=== PATIENT | female | born 1975 | race Caucasian/White ===

== ENCOUNTER 2019-04-18 19:09 | Emergency (ER) | payer OTHER, MEDICAID, SELFPAY ==
[2019-04-18 19:55] VITALS: BP 162/96; PULSE 88; RESP 15; TEMP 36.7; O2SAT 98; BMI 39.9
--- NOTE | 2019-04-18 20:09 | ED_ITS ---
HPI - URI/Sore Throat <Chelsey Kaplan PA-C - Last Filed: 04/18/19 21:06> General Chief Complaint: Upper Respiratory Symptoms Stated Complaint: EAR PAIN THROAT PAIN COUGH Time Seen by Provider: 04/18/19 20:03 Source: patient Mode of arrival: Ambulatory Limitations: no limitations History of Present Illness HPI Narrative: This 43-year-old female comes to ED secondary to onset of a 1st right-sided earache last Wednesday, then sinus and nasal pressure and congestion. She continues to have bilateral ear pressure and congestion, and yesterday woke up with a severe sore throat she thinks exacerbated by her sleep apnea. She states that she has minimal cough, not bringing up any phlegm, denies dyspnea or wheeze. She denies generalized body aches. She states she has had some chills and sweats at home, no temperature is taken. 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 Her son woke up with some similar symptoms a couple of days ago as well. She has had ear surgery in the past and thought she could have ear infection or strep throat, wanted to make sure she does not pass strep throat to the kids at school Related Data Previous Rx's Medication Instructions Recorded ibuprofen 800 mg tablet 800 mg PO TIDP PRN #60 tab 08/15/18 omeprazole 20 mg capsule,delayed 20 mg PO DAILY #30 cap 08/15/18 release bupropion HCl 300 mg 24 hr tablet, See Rx Instructions .ROUTE 04/13/19 extended release .COMPLEX #30 tablet Allergies Allergy/AdvReac Type Severity Reaction Status Date / Time No Known Drug Allergies Allergy Verified 04/18/19 20:03 Review of Systems <Chelsey Kaplan PA-C - Last Filed: 04/18/19 21:06> Review of Systems ROS Unobtainable: All systems reviewed & are unremarkable except as noted in HPI and below PFSH <Chelsey Kaplan PA-C - Last Filed: 04/18/19 21:06> Medical History Acne (Chronic 2013) Ankle pain (Resolved 1998) Cervical spine disease (Chronic 1998) Chickenpox (Resolved 1998) Depression (Chronic) Gastroparesis (Resolved 2009) GERD (gastroesophageal reflux disease) (Chronic 2009) GERD (gastroesophageal reflux disease) (Chronic) History of hemorrhoids (Resolved 2009) Knee pain, right (Resolved 11/2016) Left ankle pain (Chronic 05/19/16) Left-sided low back pain with sciatica (Chronic 04/2016) Plantar fasciitis (Resolved ~11/2016) Plantar fasciitis of left foot (Chronic 12/22/16) Sleep apnea (Chronic Unknown) Surgical History S/P hysterectomy (Chronic) Family History Father Essential hypertension Cerebrovascular accident (CVA), unspecified mechanism Mother Essential hypertension Social History marital status: lives independently: Yes occupational status: employed current occupational exposures/hazards: No Smoking Status: Never smoker alcohol intake: never substance use type: does not use Social History marital status: lives independently: Yes occupational status: employed current occupational exposures/hazards: No Smoking Status: Never smoker alcohol intake: never substance use type: does not use Exam <Chelsey Kaplan PA-C - Last Filed: 04/18/19 21:06> Narrative Exam Narrative: GENERAL APPEARANCE: Patient sitting comfortably, in no distress. HEAD: No sinus TTP. EYES: PERRL, EOMI. EARS: Normal auditory canals, there are scars on the tympanic membrane is which are intact, no erythema or drainage ORAL CAVITY: Normal oropharynx. THROAT: Mild erythema, no exudate, PND noted NECK/THYROID: Neck supple, full range of motion, shotty anterior cervical lymphadenopathy. LUNGS: Clear to auscultation bilaterally, rare dry cough on exam. HEART: RRR without murmur, nl S1, S2, no S3 or S4. DERMATOLOGIC: No exanthem Initial Vital Signs Initial Vital Signs: Vital Signs Temperature 98.1 F 04/18/19 19:55 Pulse Rate 88 04/18/19 19:55 Respiratory Rate 15 04/18/19 19:55 Blood Pressure 162/96 H 04/18/19 19:55 Pulse Oximetry 98 04/18/19 19:55 <Chepe Grimm MD - Last Filed: 04/19/19 08:30> Initial Vital Signs Initial Vital Signs: Vital Signs Temperature 98.1 F 04/18/19 19:55 Pulse Rate 88 04/18/19 19:55 Respiratory Rate 15 04/18/19 19:55 Blood Pressure 162/96 H 04/18/19 19:55 Pulse Oximetry 98 04/18/19 19:55 Course <Chelsey Kaplan PA-C - Last Filed: 04/18/19 21:06> Vital Signs Vital signs: Vital Signs - 8 hr 04/18/19 19:55 Temperature 98.1 F Pulse Rate 88 Respiratory Rate 15 Blood Pressure 162/96 H Pulse Oximetry 98 <Chepe Grimm MD - Last Filed: 04/19/19 08:30> Vital Signs Vital signs: Vital Signs - 8 hr 04/18/19 19:55 Temperature 98.1 F Pulse Rate 88 Respiratory Rate 15 Blood Pressure 162/96 H Pulse Oximetry 98 MDM - URI/Sore Throat <Chelsey Kaplan PA-C - Last Filed: 04/18/19 21:06> Lab Data Attestation: I reviewed the patient's lab results. Labs: Point of Care Testing Rapid Strep A Negative <Chepe Grimm MD - Last Filed: 04/19/19 08:30> Lab Data Labs: Point of Care Testing Rapid Strep A Negative Discharge Plan Departure Patient Disposition: Home Clinical Impression: Sinusitis Qualifiers: Sinusitis location: unspecified location Chronicity: acute Recurrence: not specified as recurrent Qualified Code(s): J01.90 - Acute sinusitis, unspecified Discharge Date/Time: 04/18/19 20:47 Instructions: DI for Sinusitis Activity Restrictions/Additional Instructions: Please rest, continue fluids and eat soft foods that will not irritate your throat. You can try an antihistamine bgej-xoh-atlszkn such as Zyrtec (cetirizine, 10 mg) to help with your sinus drainage. Since you prefer not to take decongestants, you may wish to add something like Mentholatum or Vicks to help with congestion. Try spdl-sep-xbmntat Cepacol lozenges and/or Chloraseptic spray as needed to help with sore throat. Try an ecxs-eyy-cvjxlmg anti- inflammatory such as ibuprofen to help with sore throat and any fever as well. Please follow-up with your PCP if you are not getting better by next week, return as we talked about if you have acutely worsening or new symptoms such as difficulty breathing or high fever not responding to jwfz-jmn-rpkylbe medicines. Remain off of work if you are feeling more sick or have cough to help avoid infecting others Prescriptions: No Action ibuprofen 800 mg tablet 800 mg PO TIDP PRN (Reason: pain) Qty: 60 RF: 3 omeprazole 20 mg capsule,delayed release(DR/EC) 20 mg PO DAILY Qty: 30 RF: 11 bupropion HCl 300 mg tablet extended release 24 hr See Rx Instructions .ROUTE .COMPLEX Qty: 30 RF: 3 Referrals: Cata Dooley DO [Primary Care Provider] - Hermila Wong PA-C [Non-Staff] - Stand Alone Forms: Work Release Note, Work/School Release
== END 2019-04-18 20:47 | disposition home or self-care (01) ==
PROVIDERS: Emergency Provider Internal Medicine; PCP Family Medicine
DX: J01.90 Acute sinusitis, unspecified (principal)
CPT/HCPCS: 87880; 99282; 99283

== ENCOUNTER 2019-12-08 14:52 | Observation (INO) | payer OTHER, MEDICAID, SELFPAY ==
[2019-12-08] VITALS (8 sets, daily range): BP systolic 138–185; BP diastolic 70–101; PULSE 101–112; RESP 12–24; TEMP 37.3–38.6; O2SAT 97–98; BMI 39.6
[2019-12-08 16:00] LABS: Add Manual Diff / Slide Review NO; Basophils Absolute Auto 100 /uL (0-100); Basophils Percent Auto 0.4 % (0-2); Eosinophils Absolute Auto 100 /uL (0-450); Eosinophils Percent Auto 0.5 % (2-4); Hematocrit 38.2 % (36-46); Hemoglobin 13.3 g/dL (12.0-16.0); Lymphocytes Absolute Auto 1100 /uL (1100-4500); Lymphocytes Percent Auto 8.1 % (25-40); Mean Corpuscular HGB Conc 34.8 % (30-36); Mean Corpuscular Hemoglobin 28.8 PG (26-34); Mean Corpuscular Volume 82.8 fL (80-100); Monocytes Absolute Auto 600 /uL (0-900); Monocytes Percent Auto 4.6 % (3-14); Neutrophils Absolute Auto 11300 /uL (1500-7000); Neutrophils Percent Auto 86.4 % (50-75); Platelet Count 202 X10^3/uL (150-400); Red Blood Cell Count 4.61 X10^6/uL (4.0-5.2); White Blood Cell Count 13.1 X10^3/uL (4.5-11.0)
--- NOTE | 2019-12-08 16:09 | ED.SKABFB ---
HPI - Skin/Abscess/Foreign Bdy General Chief complaint: Skin/Abscess/Foreign Body Stated complaint: thinks abcess on or bite on her butt Time Seen by Provider: 12/08/19 16:08 Source: patient Mode of arrival: Ambulatory Limitations: no limitations History of Present Illness HPI narrative: This is a 44-year-old female comes to the emergency department with complaint of a abscess or some sort of spider bite on her right buttock region. Patient states that she noticed swelling and pain over the last 24-48 hours. She started having fevers last night. She has had increasing pain and swelling and has been unable to sit comfortably on her buttock for the last 12-24 hours. She has not really had any drainage. She states the area feels very hard. She has had some nausea but no vomiting she has not had any abdominal pain. No issues with bowel movements or urination. She has not had issues with skin infections in the past. She states she takes omeprazole but denies any other current medical issues. She has had tonsillectomy and appendectomy. She denies any allergies to medications. No tobacco, alcohol or illicit. Related Data Home Medications Medication Instructions Recorded Confirmed ibuprofen 800 mg PO PRN PRN 12/08/19 12/08/19 Previous Rx's Medication Instructions Recorded omeprazole 20 mg capsule,delayed 20 mg PO DAILY #90 cap 08/13/19 release Allergies Allergy/AdvReac Type Severity Reaction Status Date / Time No Known Drug Allergies Allergy Verified 04/18/19 20:03 Review of Systems Review of Systems ROS Unobtainable: All systems reviewed & are unremarkable except as noted in HPI and below Patient History Medical History Acne (Chronic 2013) Ankle pain (Resolved 1998) Cervical spine disease (Chronic 1998) Chickenpox (Resolved 1998) Depression (Chronic) Gastroparesis (Resolved 2009) GERD (gastroesophageal reflux disease) (Chronic 2009) History of hemorrhoids (Resolved 2009) Knee pain, right (Resolved 11/2016) Left-sided low back pain with sciatica (Chronic 04/2016) Plantar fasciitis of left foot (Chronic 12/22/16) Sleep apnea (Chronic Unknown) Surgical History History of tonsillectomy (Acute) History of tubal ligation (Acute) Hx of appendectomy (Acute) S/P hysterectomy (Chronic) Family History Father Essential hypertension Cerebrovascular accident (CVA), unspecified mechanism Mother Essential hypertension Myocardial infarction Brother No significant medical problems Son Autism Social History marital status: household members: children lives independently: Yes occupational status: employed current occupational exposures/hazards: No Smoking Status: Never smoker alcohol intake: never substance use type: does not use Smoking Status: Never smoker alcohol intake frequency: holidays/special occasions only Substance Use Type: does not use Exam Narrative Exam Narrative: GENERAL: Alert and oriented x three, obese female in moderate distress. Patient is warm to the touch. HEENT: Head normocephalic, atraumatic, EOMI, pupils reactive, face symmetric, moist mucous membranes NECK: Supple, full range of motion CARDIOVASCULAR: Patient is tachycardic with regular rate and rhythm without murmurs, rubs or gallops. No JVD. RESPIRATORY: Breath sounds equal bilaterally, no wheezes rales or rhonchi. No tachypnea accessory muscle use. ABDOMEN: Soft, nontender. Normoactive bowel sounds all 4 quadrants. No guarding or rebound, rigidity, no mass. Patient's right buttock near the gluteal crease/ischial region and groin there is about a 6-8 cm irregular area of erythema as well as induration that extends towards the perineum but does not fully involve the perineum. There does not appear to be an area that is actively draining or fluctuant. Patient is very tender to touch. : No CVA tenderness EXTREMITIES: Normal range of motion, no clubbing or edema. Neurovascularly intact NEUROLOGICAL: Cranial nerves II through XII grossly intact. Moving all extremities SKIN: Warm, dry, no petechiae, no rashes or lesions other than noted above. Initial Vital Signs Initial Vital Signs: Vital Signs Temperature 101.4 F H 12/08/19 15:06 Pulse Rate 112 H 12/08/19 15:06 Respiratory Rate 22 12/08/19 15:06 Blood Pressure 185/95 H 12/08/19 15:06 Pulse Oximetry 98 12/08/19 15:06 Course Orders Ordered: Acetaminophen (Tylenol) 975 mg PO Q8H [facility] Last Admin: 12/09/19 05:04 Dose: Not Given Documented by: Admin: 12/08/19 20:51 Dose: 975 mg Documented by: MICHAEL Castillo Hydrox/Mg Hydrox/Simethicone (Maalox Plus) 30 ml PO Q6HR PRN PRN Reason: Dyspepsia Bisacodyl (Dulcolax) 10 mg MO DAILY PRN PRN Reason: Constipation Calcium Carbonate (Tums) 1,000 mg PO Q4HR PRN PRN Reason: Dyspepsia Docusate Sodium (Colace) 100 mg PO BID PRN PRN Reason: Constipation Heparin Sodium (Porcine) (Heparin) 5,000 unit SUBCUT BID [facility] Last Admin: 12/08/19 20:54 Dose: 5,000 unit Documented by: MICHAEL Ampicillin Sodium/Sulbactam (Sodium 3 gm/ Sodium Chloride) 100 mls @ 100 mls/hr IV Q6H [facility] Last Infusion: 12/09/19 06:30 Dose: 0 mls/hr Documented by: Admin: 12/09/19 05:26 Dose: 100 mls/hr Documented by: Infusion: 12/09/19 00:45 Dose: 0 mls/hr Documented by: Admin: 12/08/19 23:42 Dose: 100 mls/hr Documented by: GEGE Ibuprofen (Advil) 600 mg PO Q6HR PRN PRN Reason: Fever/Mild Pain (1-3) Last Admin: 12/09/19 05:26 Dose: 600 mg Documented by: GEGE Naloxone HCl (Narcan) 0.2 mg IV Q2MIN PRN PRN Reason: Opiate Reversal Ondansetron HCl (Zofran) 4 mg IV Q8HR PRN PRN Reason: Nausea And Vomiting Pantoprazole Sodium (Protonix) 20 mg PO 0600 [facility] Last Admin: 12/09/19 05:27 Dose: 20 mg Documented by: GEGE Discontinued Medications Sodium Chloride (Normal Saline 0.9%) 1,000 mls @ 1,000 mls/hr IV BOLUS ONE Stop: 12/08/19 16:25 Last Infusion: 12/08/19 18:23 Dose: 0 mls/hr Documented by: Admin: 12/08/19 16:26 Dose: 1,000 mls/hr Documented by: NISA Lactated Ringer's (Lactated Ringers) 3,347.52 mls @ 1,115.84 mls/hr 30 ml/kg infuse over 3 hr (3347.52 ml) IV NOW ONE Stop: 12/08/19 19:23 Last Infusion: 12/08/19 19:53 Dose: 0 mls/hr Documented by: Infusion: 12/08/19 18:23 Dose: 1,115.84 mls/hr Documented by: Admin: 12/08/19 16:52 Dose: 1,115.84 mls/hr Documented by: LEMUEL Ampicillin Sodium/Sulbactam (Sodium 3 gm/ Sodium Chloride) 100 mls @ 100 mls/hr IV NOW ONE Stop: 12/08/19 16:25 Last Infusion: 12/08/19 18:23 Dose: 0 mls/hr Documented by: Admin: 12/08/19 16:51 Dose: 100 mls/hr Documented by: LEMUEL Ketorolac Tromethamine (Toradol) 30 mg IV NOW ONE Stop: 12/08/19 16:25 Last Admin: 12/08/19 16:51 Dose: 30 mg Documented by: LEMUEL Vital Signs Vital signs: Vital Signs - 8 hr 12/08/19 15:06 12/08/19 16:29 Temperature 101.4 F H Pulse Rate 112 H 110 H Respiratory Rate 22 24 Blood Pressure 185/95 H Blood Pressure [Right Arm] 168/85 H Pulse Oximetry 98 97 MDM - Skin/Abscess/Foreign Bdy Lab Data Attestation: I reviewed the patient's lab results. Result diagrams: 12/09/19 05:09 12/09/19 05:09 Labs: Lab Results 12/08/19 12/08/19 12/08/19 Range/Units 15:56 15:56 15:56 WBC 13.1 H (4.5-11.0) X10^3/uL RBC 4.61 (4.0-5.2) X10^6/uL Hgb 13.3 (12.0-16.0) g/dL Hct 38.2 (36-46) % MCV 82.8 (80-100) fL MCH 28.8 (26-34) PG MCHC 34.8 (30-36) % RDW 13.0 (11.6-14.8) % Plt Count 202 (150-400) X10^3/uL Neut % (Auto) 86.4 H (50-75) % Lymph % (Auto) 8.1 L (25-40) % Forest % (Auto) 4.6 (3-14) % Eos % (Auto) 0.5 L (2-4) % Baso % (Auto) 0.4 (0-2) % Neut # (Auto) 10062 H (9722-3398) /uL Lymph # (Auto) 1100 (2987-0003) /uL Forest # (Auto) 600 (0-900) /uL Eos # (Auto) 100 (0-450) /uL Baso # (Auto) 100 (0-100) /uL PT 12.3 (10.1-12.7) SECONDS INR 1.1 (0.9-1.3) APTT 30 (26.4-36.2) SECONDS Sodium (137-145) mmol/L Potassium (3.4-5.1) mmol/L Chloride (98-107) mmol/L Carbon Dioxide (22-32) mmol/L BUN (7-17) mg/dL Creatinine (0.52-1.04) mg/dL Estimated GFR (>60) mL/min BUN/Creatinine Ratio (6-22) Glucose (70-100) mg/dL Lactate (0.7-2.1) mmol/L Calcium (8.4-10.2) mg/dL Total Bilirubin (0.2-1.3) mg/dL AST (14-36) IU/L ALT (<35) IU/L Alkaline Phosphatase (38-126) U/L Total Protein (6.3-8.2) g/dL Albumin (3.5-5.0) g/dL Globulin (1.7-4.1) g/dL Albumin/Globulin Ratio (1.0-2.8) Lipase (23-300) U/L Procalcitonin < 0.05 (<0.5) ng/mL 12/08/19 12/08/19 Range/Units 15:56 15:56 WBC (4.5-11.0) X10^3/uL RBC (4.0-5.2) X10^6/uL Hgb (12.0-16.0) g/dL Hct (36-46) % MCV (80-100) fL MCH (26-34) PG MCHC (30-36) % RDW (11.6-14.8) % Plt Count (150-400) X10^3/uL Neut % (Auto) (50-75) % Lymph % (Auto) (25-40) % Forest % (Auto) (3-14) % Eos % (Auto) (2-4) % Baso % (Auto) (0-2) % Neut # (Auto) (7150-8289) /uL Lymph # (Auto) (1212-3588) /uL Forest # (Auto) (0-900) /uL Eos # (Auto) (0-450) /uL Baso # (Auto) (0-100) /uL PT (10.1-12.7) SECONDS INR (0.9-1.3) APTT (26.4-36.2) SECONDS Sodium 138 (137-145) mmol/L Potassium 3.7 (3.4-5.1) mmol/L Chloride 103 (98-107) mmol/L Carbon Dioxide 23 (22-32) mmol/L BUN 11 (7-17) mg/dL Creatinine 0.81 (0.52-1.04) mg/dL Estimated GFR > 60.0 (>60) mL/min BUN/Creatinine Ratio 13.6 (6-22) Glucose 102 H (70-100) mg/dL Lactate 0.6 L (0.7-2.1) mmol/L Calcium 9.1 (8.4-10.2) mg/dL Total Bilirubin 1.0 (0.2-1.3) mg/dL AST 31 (14-36) IU/L ALT 27 (<35) IU/L Alkaline Phosphatase 61 (38-126) U/L Total Protein 7.6 (6.3-8.2) g/dL Albumin 4.5 (3.5-5.0) g/dL Globulin 3.1 (1.7-4.1) g/dL Albumin/Globulin Ratio 1.5 (1.0-2.8) Lipase 45 (23-300) U/L Procalcitonin (<0.5) ng/mL Imaging Data CT scan - abdomen/pelvis: Radiologist's Impression: [address] [address] [address] Scan Report Signed Patient: Aria Howard KMR#: [id number] : 1975Acct:[id number] Age/Sex: 44 / FDate of Service: 12/08/19 Loc: ED Accession Number: [id number] Procedure: CT abdomen pelvis w con Ordering Provider: Светлана Barreto D.O. PROCEDURE: CT ABDOMEN PELVIS W CON INDICATIONS: cellulitis/abscess of right buttock/groin, sepsis TECHNIQUE: After the administration of intravenous contrast, 5 mm thick sections acquired from the diaphragm to the symphysis. 5 mm coronal and sagittal reformats were acquired. For radiation dose reduction, the following was used: automated exposure control, adjustment of mA and/or kV according to patient size. COMPARISON: None. FINDINGS: Image quality: Excellent. ABDOMEN: Lung bases: Lung bases are clear. Heart size is normal. Solid organs: Evaluation of the liver demonstrates no focal hepatic lesions. The gallbladder appears within normal limits without calcified gallstones. Biliary system is non-dilated. Pancreas enhances normally. No peripancreatic fat stranding or fluid collections. No pancreatic duct dilatation. The spleen is normal in size. There is a small cyst within the inferior spleen measuring up to 1.3 cm. No adrenal nodules. Kidneys demonstrate no hydronephrosis. Peritoneum and bowel: Bowel loops demonstrate normal wall thickness and caliber. No free fluid or air. Nodes and vessels: No retroperitoneal or mesenteric adenopathy by size criteria. Aorta and inferior vena cava are normal in size. Miscellaneous: No ventral hernias. PELVIS: Genitourinary: The urinary bladder is partially distended. There are 2 right adnexal cysts measuring up to 4.0 cm and 2.9 cm. Miscellaneous: There is subcutaneous fat stranding in the right gluteal soft tissues without a discrete fluid collection to suggest an abscess. No definite ulcers or sinus tracts. No inguinal hernias or adenopathy. Bones: No suspicious bony lesions. No vertebral body compression fractures. IMPRESSION: 1. Right gluteal subcutaneous edema compatible with cellulitis given clinical history. No discrete abscess collection, ulcer, or sinus tract identified. 2. 2 right adnexal cysts are nonspecific and may represent physiologic cysts. Further evaluation may be obtained with ultrasound in 6 weeks to demonstrate resolution if clinically indicated. Dictated by: Keegan Mcgregor M.D. on 12/08/2019 at 17:10 Approved by: Keegan Mcgregor M.D. on 12/08/2019 at 17:15 ECG Data Attestation: I personally reviewed and interpreted this ECG as follows: Interpretation: Sinus tachycardia rate of 116 MO 135 QRS of [address] elevation or depression. MDM Narrative Medical decision making narrative: Patient meets septic criteria with fever and tachycardia, she does have an elevated wbc at 13.1, left shift with normal hemoglobin. CMP shows a glucose of 102 is not elevated lactate at 0.6. Renal function electrolytes are normal along with LFTs. Procalcitonin is not elevated. CT it abdomen/pelvis was ordered as patient has a very large area of induration and erythema and likely has an abscess although I am not able to palpate a clear area that I can drain, because of her sepsis and body habitus feel CT would be more appropriate at this time. Patient received fluids, Toradol initial dose of IV antibiotics. CT shows area of subcutaneous edema and fat stranding without a discrete fluid collection to suggest an abscess. Area is large and this was discussed with General surgery with Dr. Blair, she will look at images but if there is only cellulitic changes and edema at this time she would ask that inpatient medicine contact her a official consult if patient develops abscess after repeat imaging. Discussed with Dr. Bonilla, she accepts for observation. Started on Unasyn, 30cc/kg bolus IV fluids and Toradol, and Dr. Bonilla is aware of Dr. Greene's request. Discharge Plan Departure Patient Disposition: Admitted as Observation Clinical Impression: Cellulitis, gluteal, right Sepsis Qualifiers: Sepsis type: sepsis due to unspecified organism Sepsis acute organ dysfunction status: without acute organ dysfunction Qualified Code(s): A41.9 - Sepsis, unspecified organism Discharge Date/Time: 12/08/19 18:28 Referrals: Cata Dooley DO [Primary Care Provider] - Admit Date/Time: 12/08/19 17:56 Admit Provider: Dayana Bonilla
[2019-12-08 16:10] LABS: INR 1.1 (0.9-1.3); Prothrombin Time 12.3 SECONDS (10.1-12.7)
[2019-12-08 16:13] LABS: Lactate (Lactic Acid) 0.6 mmol/L (0.7-2.1); PTT Partial Thromboplastin Tim 30 SECONDS (26.4-36.2)
[2019-12-08 16:14] LABS: Alanine Aminotransferase 27 IU/L (<35); Albumin 4.5 g/dL (3.5-5.0); Albumin Globulin Ratio 1.5 (1.0-2.8); Alkaline Phosphatase 61 U/L (38-126); Aspartate Aminotransferase 31 IU/L (14-36); BUN Creatinine Ratio 13.6 (6-22); Blood Urea Nitrogen 11 mg/dL (7-17); Calcium 9.1 mg/dL (8.4-10.2); Carbon Dioxide 23 mmol/L (22-32); Chloride 103 mmol/L (98-107); Estimated Glomerular Filt Rate > 60.0 mL/min (>60); Globulin 3.1 g/dL (1.7-4.1); Glucose 102 mg/dL (70-100); HEMOLYSIS < 15 (0-50); Lipase 45 U/L (23-300); Potassium 3.7 mmol/L (3.4-5.1); Sodium 138 mmol/L (137-145); Total Protein 7.6 g/dL (6.3-8.2)
[2019-12-08] MEDS: SODIUM CHLORIDE 0.9% 1,000 ML 1000 ML IV (16:26)
--- NOTE | 2019-12-08 16:28 | DI.CT.S_ITS ---
PROCEDURE: CT ABDOMEN PELVIS W CON INDICATIONS: cellulitis/abscess of right buttock/groin, sepsis TECHNIQUE: After the administration of intravenous contrast, 5 mm thick sections acquired from the diaphragm to the symphysis. 5 mm coronal and sagittal reformats were acquired. For radiation dose reduction, the following was used: automated exposure control, adjustment of mA and/or kV according to patient size. COMPARISON: None. FINDINGS: Image quality: Excellent. ABDOMEN: Lung bases: Lung bases are clear. Heart size is normal. Solid organs: Evaluation of the liver demonstrates no focal hepatic lesions. The gallbladder appears within normal limits without calcified gallstones. Biliary system is non-dilated. Pancreas enhances normally. No peripancreatic fat stranding or fluid collections. No pancreatic duct dilatation. The spleen is normal in size. There is a small cyst within the inferior spleen measuring up to 1.3 cm. No adrenal nodules. Kidneys demonstrate no hydronephrosis. Peritoneum and bowel: Bowel loops demonstrate normal wall thickness and caliber. No free fluid or air. Nodes and vessels: No retroperitoneal or mesenteric adenopathy by size criteria. Aorta and inferior vena cava are normal in size. Miscellaneous: No ventral hernias. PELVIS: Genitourinary: The urinary bladder is partially distended. There are 2 right adnexal cysts measuring up to 4.0 cm and 2.9 cm. Miscellaneous: There is subcutaneous fat stranding in the right gluteal soft tissues without a discrete fluid collection to suggest an abscess. No definite ulcers or sinus tracts. No inguinal hernias or adenopathy. Bones: No suspicious bony lesions. No vertebral body compression fractures. IMPRESSION: 1. Right gluteal subcutaneous edema compatible with cellulitis given clinical history. No discrete abscess collection, ulcer, or sinus tract identified. 2. 2 right adnexal cysts are nonspecific and may represent physiologic cysts. Further evaluation may be obtained with ultrasound in 6 weeks to demonstrate resolution if clinically indicated. Dictated by: Keegan Mcgregor M.D. on 12/08/2019 at 17:10 Approved by: Keegan Mcgregor M.D. on 12/08/2019 at 17:15
[2019-12-08] MEDS: AMPICILLIN/SULBACTAM 3 GM 3 GM in SODIUM CHLORIDE 0.9% 100 ML IV ×2 (16:51→23:42)
[2019-12-08] MEDS: KETOROLAC 60 MG/2 ML VIAL 30 MG IV (16:51)
[2019-12-08] MEDS: LACTATED RINGERS 1115.84 ML IV (16:52)
[2019-12-08 16:54] LABS: Procalcitonin < 0.05 ng/mL (<0.5)
[2019-12-08 18:30] LABS: Appearance Urine UA CLEAR; Bacteria Urine None Seen; Bilirubin Urine UA NEGATIVE (NEGATIVE); Color Urine UA YELLOW; Glucose Urine UA NEGATIVE (Negative); Ketones Urine UA TRACE (NEGATIVE); Leukocyte Esterase Urine UA NEGATIVE (NEGATIVE); Nitrite Urine UA NEGATIVE (Negative); Occult Blood Urine UA NEGATIVE (Negative); Protein Urine UA NEGATIVE (Negative); RBC Urine None Seen (0-5/HPF); Specific Gravity Urine UA <=1.005 (1.000-1.035); Urobilinogen Urine UA 0.2 E.U./dL (0.2); WBC Urine None Seen (0-5/HPF)
[2019-12-08 18:37] LABS: Culture Indicated Urine Cult Not Indicated; Urine Comments Microscopic Normal; pH Urine UA 7.5 (4.5-8.0)
--- NOTE | 2019-12-08 19:14 | PC.NURSE ---
Pt arrived on unit from ER at approx 1830 via stretcher. Pt rates R buttock 5/10 pain, and states that she is tired from working all day and that she is hungry, she has not eaten all day. Her current temp is 99.2. She has + BT, LS are clear, HR is S1, S2. She is A and O x 4.
--- NOTE | 2019-12-08 20:28 | P.HP_ITS ---
History of Present Illness History of Present Illness Date Patient Seen: 12/08/19 Time Patient Seen: 19:47 Chief complaint: thinks abcess on or bite on her butt Narrative: Ms. Aria Howard is a 44-year-old female with a history significant for cervical and lumbar spine pain, sciatic, depression and GERD who presents to the ER with a right buttock abscess. The patient states that she began having pain 1-2 days ago and did manipulate the abscess attempting to drain it without success. She has had associated symptoms fevers onset last night with shaking chills, nausea without vomiting, progressive pain and swelling. 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 She has taken Tylenol for fevers and discomfort. She also describes symptoms including headache and some dizziness but no nasal congestion or sore throat. She has had no chest pain or palpitations, shortness of breath cough or wheezing. She describes some upper abdominal discomfort she describes musculoskeletal. She has had no change in bowel habits and denies urinary symptoms including urgency frequency or burning. The patient has chronic cervical and lumbar spine pain with knee pain and states that she has 50% disabled from the . She is otherwise independent in all ADLs. Upon arrival to the ER the patient has a temperature 101.4?, tachycardic at 112, blood pressure 185/95, respiratory rate of 22 saturating 98% on room air. CT imaging is obtained which finds the subcutaneous fat stranding of the right gl uteus without fluid collection or identified ulcer or sinus tract, incidental finding of splenic cyst 1.3 cm and 2 right adnexal cyst measuring 4 cm and 2.9 cm. On laboratory analysis she has elevated white count at 13.1, hemoglobin of 13.3 and hematocrit of 38.2 with platelets of 202. She has a PT of 12.3, INR 1.1 and a PTT of 30. Electrolytes within normal limits she has a BUN 11 and creatinine 0.81. Her nonfasting glucose is 102. On liver functions and transaminase are within normal limits. She has lactic acid of 0.6 and a procalcitonin is negative at less than 0.05. Urinalysis has trace ketones and is negative for infection. In the ER the patient is receiving sepsis bolus of lactated Ringer's and ampicillin/sulbactam 3 g IV. The patient is admitted to the medicine service for right buttock cellulitis. Patient History Medical History Acne (Chronic 2013) Ankle pain (Resolved 1998) Cervical spine disease (Chronic 1998) Chickenpox (Resolved 1998) Depression (Chronic) Gastroparesis (Resolved 2009) GERD (gastroesophageal reflux disease) (Chronic 2009) History of hemorrhoids (Resolved 2009) Knee pain, right (Resolved 11/2016) Left-sided low back pain with sciatica (Chronic 04/2016) Plantar fasciitis of left foot (Chronic 12/22/16) Sleep apnea (Chronic Unknown) Surgical History History of tonsillectomy (Acute) History of tubal ligation (Acute) Hx of appendectomy (Acute) S/P hysterectomy (Chronic) Family & Social History Family History Father Essential hypertension Cerebrovascular accident (CVA), unspecified mechanism Mother Essential hypertension Myocardial infarction Brother No significant medical problems Son Autism Social History: household members children Prior Living Arrangements House lives independently Yes Safety & Behavioral: Feels Safe in Current Yes Environment Been Physically Hurt or No Threatened By a Person Suicidal Ideation Description None Suicide Plan Description No Plan Tobacco & Substance use: Smoking Status Never smoker alcohol intake never alcohol intake frequency holiday/special occasion Substance Use Type does not use Comment: The patient is and lives with her children in a single family home. 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 Alcohol: Occasional alcohol consumption on special occasions. Substance use: Patient denies recreation pharmaceuticals herbal or cannabis products. Advanced directives: Inject discussion with the patient she states her wish to be FULL CODE. She further states that she does not wish to have long-term life support measures. She designates her mother to be her surrogate decision maker. Meds Home Medications and Allergies Home Medications Medication Instructions Recorded Confirmed Type omeprazole 20 mg capsule,delayed 20 mg PO DAILY #90 cap 08/13/19 12/08/19 Rx release ibuprofen 800 mg PO PRN PRN 12/08/19 12/08/19 History Allergies Allergy/AdvReac Type Severity Reaction Status Date / Time No Known Drug Allergies Allergy Verified 04/18/19 20:03 Review of Systems Review of Systems ROS: Yes All systems reviewed with the patient and are negative except as otherwise documented Exam Vital Signs (past 8 hours): - 12/08/19 15:06 12/08/19 16:29 12/08/19 17:55 Temperature 101.4 F H Pulse Rate 112 H 110 H 104 H Respiratory Rate 22 24 18 Blood Pressure 185/95 H Blood Pressure [Right Arm] 168/85 H 138/70 Pulse Oximetry 98 97 97 12/08/19 18:13 12/08/19 19:21 12/08/19 19:48 Temperature 99.2 F 100.6 F H Pulse Rate 104 H 101 H Respiratory Rate 12 18 Blood Pressure 148/101 H Blood Pressure [Right Arm] 168/85 H Pulse Oximetry 98 98 Oxygen Delivery Method Room Air Narrative Exam Narrative: GENERAL APPEARANCE: well developed, obese female, in no acute distress. HEENT: Normocephalic, PERRLA, conjunctiva clear, EOMs intact without nystagmus, no sinus tenderness to percussion, no rhinorrhea, mucous membranes are moist and pink without lesions or exudate. NECK/THYROID: neck supple, no JVD, no carotid bruit, no thyromegaly, trachea midline. LYMPH NODES: no cervical or supraclavicular lymphadenopathy. SKIN: [place], warm and dry, no visible rashes. HEART: regular rate and rhythm, S1-S2, no murmur, no rubs or gallops, brisk capillary refill, no edema LUNGS: clear to auscultation bilaterally, no coarseness crackles or wheezing, no cough present CHEST: Symmetrical movement, no accessory muscle use, good tidal volume. ABDOMEN: Soft, no distention, no epigastric or abdominal tenderness, no guarding or peritoneal signs, no organomegaly, no flank or suprapubic tenderness, active bowel tones, 8 cm x 12 cm induration with warmth, redness, swelling and tenderness extending from the perineum perirectal area upon to the right medial gluteus, slight central flocculence with 2 small punctate areas of ecchymoses BACK: Normal curvature, nontender to palpation, no CVA tenderness on percussion EXTREMITIES: moves all extremities, strength is 5/5 and symmetrical, no deformities or joint effusions. NEUROLOGIC: AAO x4, no focal neurologic deficits, cranial nerves II-XII grossly intact, sensation intact to light touch. PSYCH: anxious, cooperative, appropriate with stable behavior. Objective Labs Result Diagrams: 12/08/19 15:56 12/08/19 15:56 Labs: Laboratory Results - last 24 hr 12/08/19 12/08/19 12/08/19 15:56 15:56 15:56 WBC 13.1 H RBC 4.61 Hgb 13.3 Hct 38.2 MCV 82.8 MCH 28.8 MCHC 34.8 RDW 13.0 Plt Count 202 Neut % (Auto) 86.4 H Lymph % (Auto) 8.1 L [place] % (Auto) 4.6 Eos % (Auto) 0.5 L Baso % (Auto) 0.4 Neut # (Auto) 64704 H Lymph # (Auto) 1100 [place] # (Auto) 600 Eos # (Auto) 100 Baso # (Auto) 100 PT 12.3 INR 1.1 APTT 30 Sodium Potassium Chloride Carbon Dioxide BUN Creatinine Estimated GFR BUN/Creatinine Ratio Glucose Lactate Calcium Total Bilirubin AST ALT Alkaline Phosphatase Total Protein Albumin Globulin Albumin/Globulin Ratio Lipase Procalcitonin < 0.05 Urine Color Urine Appearance Urine pH Ur Specific [place] Urine Protein Urine Glucose (UA) Urine Ketones Urine Occult Blood Urine Nitrate Urine Bilirubin Urine Urobilinogen Ur Leukocyte Esterase Urine RBC Urine WBC Urine Bacteria Ur Culture Indicated? Micro UA Comment 12/08/19 12/08/19 12/08/19 15:56 15:56 18:05 WBC RBC Hgb Hct MCV MCH MCHC RDW Plt Count Neut % (Auto) Lymph % (Auto) [place] % (Auto) Eos % (Auto) Baso % (Auto) Neut # (Auto) Lymph # (Auto) [place] # (Auto) Eos # (Auto) Baso # (Auto) PT INR APTT Sodium 138 Potassium 3.7 Chloride 103 Carbon Dioxide 23 BUN 11 Creatinine 0.81 Estimated GFR > 60.0 BUN/Creatinine Ratio 13.6 Glucose 102 H Lactate 0.6 L Calcium 9.1 Total Bilirubin 1.0 AST 31 ALT 27 Alkaline Phosphatase 61 Total Protein 7.6 Albumin 4.5 Globulin 3.1 Albumin/Globulin Ratio 1.5 Lipase 45 Procalcitonin Urine Color Yellow Urine Appearance Clear Urine pH 7.5 Ur Specific [place] <=1.005 Urine Protein Negative Urine Glucose (UA) Negative Urine Ketones Trace H Urine Occult Blood Negative Urine Nitrate Negative Urine Bilirubin Negative Urine Urobilinogen 0.2 Ur Leukocyte Esterase Negative Urine RBC None seen Urine WBC None seen Urine Bacteria None seen Ur Culture Indicated? Cult not indicated Micro UA Comment Microscopic normal Assessment & Plan Assessment & Plan narrative: This is a 44-year-old female patient who presents to the ER with right but accept colitis with systemic symptoms including fevers with shaking chills, nausea and dizziness developing over 2 days. 1. Right gluteal cellulitis, present on admission, active. -on presentation the patient's tachycardic with heart rate 112 in a fever 101.4. -abdominal CT finds subcutaneous fat stranding of the right gluteus without fluid collection, ulcers or sinus tract. -on laboratory analysis has elevated white count at 13.1, lactic acid of 0.6, procalcitonin less than 0.05. -patient received sepsis bolus in the emergency department and subsequently saline locked not meeting sepsis 3 criteria with a SOFA score of 0. -ordered amoxicillin sulbactam 3 g IV every 6 hours, 1st dose administered in emergency department after blood cultures were drawn. -on wound evaluation slight flocculence is identified, will obtain a soft tissue ultrasound. -ordered Tylenol 975 mg scheduled every 8 hours. -ordered ibuprofen 600 mg every 6 hours as needed for pain or fever. -will recheck CBC and procalcitonin in the morning. 2. Gastroesophageal reflux disorder, chronic, stable -patient describes mild epigastric pain which she believes is musculoskeletal with a history of prior GERD and taking omeprazole. -ordered pantoprazole 20 mg by mouth daily for gastric protection. 3. Depression in remission, chronic, stable. -patient has a history of depression and previously had been taking bupropion 300 mg daily which she has weaned off. -patient appears anxious, reviewed plan and care and solicit questions which were red answered. COVID-19: Patient not screened. Isolation: None VTE prophylaxis bilateral SCDs, heparin 5000 units twice daily. IV fluid: Patient received sepsis bolus, will saline lock. Diet: Heart healthy Code status: FULL CODE, the patient's mother is her surrogate decision maker. The patient is admitted to the hospital due to the severity of her symptoms for IV antibiotic therapy. The patient is admitted as observation with expected length of stay to be less than 2 midnights. Scores GCS [place] coma scale eye opening: Spontaneous Julio coma scale verbal response: Orientated [place] coma scale motor response: Obey commands Julio coma scale total score: 15 SOFA PaO2/FIO2: >=400 mmHg Platelets: >= 150 Bilirubin: < 1.2 mg/dL Hypotension: MAP >= 70 mmHg Julio Coma Scale: 15 Renal: < 1.2 mg/dL SOFA Score: 0 Quality VTE Deep Vein Thrombosis/Pulmonary Embolism Present on Admission: No
[2019-12-08] MEDS: ACETAMINOPHEN 325 MG TABLET 975 MG PO (20:51)
[2019-12-08] MEDS: HEPARIN 5,000 UNIT/ML VIAL 5000 UNIT SUBCUT (20:54)
--- NOTE | 2019-12-08 23:22 | PC.NURSE ---
Pt asked that her 2300 ABOS and VS be given/gotten as late as possible so she could have an interval of sleep.
[2019-12-09] VITALS: BP 155/99; PULSE 99; RESP 18; TEMP 37; O2SAT 97
[2019-12-09 03:00] VITALS: O2SAT 99
[2019-12-09 04:00] VITALS: BP 149/69; PULSE 95; RESP 18; TEMP 37.2; O2SAT 98
[2019-12-09 05:24] LABS: Add Manual Diff / Slide Review NO; Basophils Absolute Auto 100 /uL (0-100); Basophils Percent Auto 0.5 % (0-2); Eosinophils Absolute Auto 100 /uL (0-450); Eosinophils Percent Auto 0.9 % (2-4); Hematocrit 35.4 % (36-46); Hemoglobin 12.2 g/dL (12.0-16.0); Lymphocytes Absolute Auto 1200 /uL (1100-4500); Lymphocytes Percent Auto 9.8 % (25-40); Mean Corpuscular HGB Conc 34.6 % (30-36); Mean Corpuscular Hemoglobin 28.8 PG (26-34); Mean Corpuscular Volume 83.2 fL (80-100); Monocytes Absolute Auto 800 /uL (0-900); Monocytes Percent Auto 6.6 % (3-14); Neutrophils Absolute Auto 10100 /uL (1500-7000); Neutrophils Percent Auto 82.2 % (50-75); Platelet Count 185 X10^3/uL (150-400); Red Blood Cell Count 4.25 X10^6/uL (4.0-5.2); Red Cell Distribution Width 13.1 % (11.6-14.8); White Blood Cell Count 12.3 X10^3/uL (4.5-11.0)
[2019-12-09] MEDS: AMPICILLIN/SULBACTAM 3 GM 3 GM in SODIUM CHLORIDE 0.9% 100 ML IV (05:26)
[2019-12-09] MEDS: IBUPROFEN 600 MG TABLET PO (05:26)
[2019-12-09] MEDS: PANTOPRAZOLE 20 MG TABLET PO (05:27)
[2019-12-09 05:35] LABS: BUN Creatinine Ratio 16.4 (6-22); Blood Urea Nitrogen 12 mg/dL (7-17); Calcium 8.4 mg/dL (8.4-10.2); Carbon Dioxide 23 mmol/L (22-32); Chloride 107 mmol/L (98-107); Estimated Glomerular Filt Rate > 60.0 mL/min (>60); Glucose 99 mg/dL (70-100); HEMOLYSIS < 15 (0-50); Potassium 3.5 mmol/L (3.4-5.1); Sodium 139 mmol/L (137-145)
[2019-12-09 05:52] LABS: Procalcitonin < 0.05 ng/mL (<0.5)
--- NOTE | 2019-12-09 06:17 | PC.NURSE ---
Skin to Right buttocks is slightly opened with some very small oozing. Site is purple and pink and firm upon palpation. More painful to patient with movement. NPO starting this morning in case needs to go to OR
[2019-12-09 08:00] VITALS: BP 135/91; PULSE 79; RESP 18; TEMP 36.6; O2SAT 96
[2019-12-09 08:07] VITALS: O2SAT 96
--- NOTE | 2019-12-09 09:13 | DI.US.S_ITS ---
PROCEDURE: US EXTREMITY NONVASC LOWER RT INDICATIONS: CELLULITIS,POSSIBLE ABSCESS RIGHT INFEROMEDIAL BUTTOCK TECHNIQUE: Real-time scanning was performed of the right gluteal region, with image documentation. COMPARISON: None. FINDINGS: Targeted sonographic imaging of the right gluteal region demonstrates no cystic or solid mass. No enlarged lymph nodes are identified. A focal area of subcutaneous edema is identified within this region without a definable fluid collection evident. IMPRESSION: Focal subcutaneous edema along the right gluteal region likely represents cellulitis. There is no drainable fluid collection, at this time. Dictated by: Dony Saul M.D. on 12/09/2019 at 9:00 Approved by: Dony Saul M.D. on 12/09/2019 at 9:01
[2019-12-09] MEDS: ACETAMINOPHEN 325 MG TABLET 975 MG PO (11:18)
[2019-12-09 12:00] VITALS: O2SAT 95
--- NOTE | 2019-12-09 12:22 | CM.DANOTE ---
Discharge Planning/Care Management DCP: assessment: case received, EMR reviewed, d/c to home order noted but not fully finalized. Met with pt now and introduced self and role. Pt is a 44 year old female who admitted yesterday evening to care of hospitalist team. PCP: NURIS Roberson Payer: [facility] Medicaid Consulting: Dr. Antwan Eric: [facility]. No consult note is in but per very from HO[facility] Patel/pt and Dr. Bonilla he has examined pt and looked at testing and ok'd pt for a d/c to home on oral antibiotics for her gluteal infection. Pt says she feels much better than when she came into the ER and is eager to get back home. Dr. Bonilla will see pt soon and pt will d/c as soon as the d/c paperwork is completed. Advanced directive, confirm from FAMILY Start: 12/08/19 18:47 Freq: Q24H Status: Active Protocol: Document 12/08/19 19:22 (Rec: 12/08/19 19:22 [id number]) Advance Directive, confirm on record Time 19:22 Person contacted patient Copy received No CM Discharge Assessment Start: 12/09/19 12:20 Freq: Status: Active Protocol: Document 12/09/19 12:20 ITV (Rec: 12/09/19 12:22 ITV [id number]) Discharge Planning Assessment Advance Directives? No History Provided By Patient,Medical Record Has Patient been admitted in last 30 No days? Prior Living Arrangements House Household Members children Comment 13 year old daughter with autism, 20 year old son. Pt works for the [employer]. Independent with ADL's Yes Is patient alert and oriented? Yes Discharge Plan Home Transportation Arrangement friend Maria A will be taking her home. Maria A is currently waiting outside hospital in her care and pt is waiting for Dr. Bonilla to finalize the d/c orders. Review Status In Process
--- NOTE | 2019-12-09 12:37 | PM.DS.1 ---
History of Present Illness History of Present Illness Date Patient Seen: 12/08/19 Chief complaint: thinks abcess on or bite on her butt Narrative: Written by Javier LAWLER: Ms. Aria Howard is a 44-year-old female with a history significant for cervical and lumbar spine pain, sciatic, depression and GERD who presents to the ER with a right buttock abscess. The patient states that she began having pain 1-2 days ago and did manipulate the abscess attempting to drain it without success. She has had associated symptoms fevers onset last night with shaking chills, nausea without vomiting, progressive pain and swelling. 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 She has taken Tylenol for fevers and discomfort. She also describes symptoms including headache and some dizziness but no nasal congestion or sore throat. She has had no chest pain or palpitations, shortness of breath cough or wheezing. She describes some upper abdominal discomfort she describes musculoskeletal. She has had no change in bowel habits and denies urinary symptoms including urgency frequency or burning. The patient has chronic cervical and lumbar spine pain with knee pain and states that she has 50% disabled from the . She is otherwise independent in all ADLs. Upon arrival to the ER the patient has a temperature 101.4?, tachycardic at 112, blood pressure 185/95, respiratory rate of 22 saturating 98% on room air. CT imaging is obtained which finds the subcutaneous fat stranding of the right gluteus without fluid collection or identified ulcer or sinus tract, incidental finding of splenic cyst 1.3 cm and 2 right adnexal cyst measuring 4 cm and 2.9 cm. On laboratory analysis she has elevated white count at 13.1, hemoglobin of 13.3 and hematocrit of 38.2 with platelets of 202. She has a PT of 12.3, INR 1.1 and a PTT of 30. Electrolytes within normal limits she has a BUN 11 and creatinine 0.81. Her nonfasting glucose is 102. On liver functions and transaminase are within normal limits. She has lactic acid of 0.6 and a procalcitonin is negative at less than 0.05. Urinalysis has trace ketones and is negative for infection. In the ER the patient is receiving sepsis bolus of lactated Ringer's and ampicillin/sulbactam 3 g IV. The patient is admitted to the medicine service for right buttock cellulitis. Discharge Providers Provider Date of admission: 12/08/19 17:56 Discharge Date: 12/09/19 Primary care physician: Cata Dooley DO Consults: 12/08/19 19:46 Consult to Dietitian, Adult Routine Comment: Reason For Exam: Obesity, BMI 39.7 Consult to Discharge Planning Routine Comment: 12/09/19 07:11 Consult to General Surgery Routine Comment: Consulting Provider: Ralph Eric Reason for consultation: Abscess Has provider been notified: Yes Discharge provider: Dayana Bonilla DO Summary Hospital Course Discharge Diagnosis: 1. Acute right gluteal cellulitis, present on admission. Resolving. 2. Gastroesophageal reflux disorder, chronic, present on admission. Stable. 3. History of depression in remission. Hospital Course: 1. Acute right gluteal cellulitis, present on admission. Resolving. -Patient presented with right gluteal cellulitis and met SIRS criteria with tachycardia (HR 112), febrile (temp 101.4), and leukocytosis (WBC 13.1). Patient did not meet sepsis 3 criteria and SOFA score was 0. -CT abdomen and pelvis demonstrated subcutaneous fat stranding of the right gluteus without fluid collection, ulcers or sinus tract. -Utrasound of right gluteus demonstrated focal subcutaneous edema along the right gluteal region likely represents cellulitis. There is no drainable fluid collection. -Initial WBC 13.1 and trended down now 12.3. Procalcitonin negative < 0.05 x 2 and lactic acid normal at 0.6. -Received normal saline per sepsis protocol in ED. -Continued Unasyn 3 g IV every 6 hours which was started in ED and discharged on Keflex 500 mg twice daily for 7 days to complete course of treatment. -Continued acetaminophen 975 mg scheduled every 8 hours and ibuprofen 600 mg every 6 hours as needed for pain or fever. 2. Gastroesophageal reflux disorder, chronic, present on admission. Stable. -Patient describes mild epigastric pain which she believes is musculoskeletal with a history of prior GERD and taking omeprazole. -Continue equivalent of home PPI with Protonix 20 mg daily. 3. History of depression in remission. -Patient has a history of depression and was previously treated with bupropion 300 mg daily. -Patient was slightly anxious but otherwise mood has stable. Exam Vital Signs (past 8 hours): - 12/09/19 08:00 12/09/19 08:07 12/09/19 12:00 Temperature 97.8 F Pulse Rate 79 Respiratory Rate 18 Blood Pressure 135/91 H Pulse Oximetry 96 96 95 Oxygen Delivery Method Room Air Oxygen Flow Rate 0 Narrative Exam Narrative: General: Young female standing in room and in no acute distress, well-developed, well-nourished, appropriately interactive. HEENT: Normocephalic, atraumatic. External ears without defect. Pupils equal, round, and reactive to light. Anicteric sclerae, moist conjunctivae, and no lid lag. Oropharynx free of erythema and cobble stoning with moist mucosa. Neck: Supple with full range of motion.No lymphadenopathy or thyromegaly. Cardiovascular: Regular rate and rhythm without murmurs, rubs, or gallops appreciated Pulmonary: Clear to auscultation bilaterally without crackles, wheezes, or rhonchi. Normal respiratory effort with no use of accessory muscles. Abdomen: Soft, obese, nontender, nondistended. No hepatosplenomegaly or masses appreciated. Extremities: No clubbing, cyanosis, or edema. Skin: Small erythematous and warm area of distal right gluteus near gluteal cleft, approximately 4 x 6 cm in diameter, with scab field representatives director of mild cellulitis. Neurological: Cranial nerves grossly intact. Psychiatric: Slightly anxious mood and normal affect. Alert and oriented to person, place, and time. Objective Labs Result Diagrams: 12/09/19 05:09 12/09/19 05:09 Labs: Laboratory Results - last 24 hr 12/08/19 12/08/19 12/08/19 15:56 15:56 15:56 WBC 13.1 H RBC 4.61 Hgb 13.3 Hct 38.2 MCV 82.8 MCH 28.8 MCHC 34.8 RDW 13.0 Plt Count 202 Neut % (Auto) 86.4 H Lymph % (Auto) 8.1 L [place] % (Auto) 4.6 Eos % (Auto) 0.5 L Baso % (Auto) 0.4 Neut # (Auto) 19304 H Lymph # (Auto) 1100 [place] # (Auto) 600 Eos # (Auto) 100 Baso # (Auto) 100 PT 12.3 INR 1.1 APTT 30 Sodium Potassium Chloride Carbon Dioxide BUN Creatinine Estimated GFR BUN/Creatinine Ratio Glucose Lactate Calcium Total Bilirubin AST ALT Alkaline Phosphatase Total Protein Albumin Globulin Albumin/Globulin Ratio Lipase Procalcitonin < 0.05 Urine Color Urine Appearance Urine pH Ur Specific [place] Urine Protein Urine Glucose (UA) Urine Ketones Urine Occult Blood Urine Nitrate Urine Bilirubin Urine Urobilinogen Ur Leukocyte Esterase Urine RBC Urine WBC Urine Bacteria Ur Culture Indicated? Micro UA Comment 12/08/19 12/08/19 12/08/19 15:56 15:56 18:05 WBC RBC Hgb Hct MCV MCH MCHC RDW Plt Count Neut % (Auto) Lymph % (Auto) [place] % (Auto) Eos % (Auto) Baso % (Auto) Neut # (Auto) Lymph # (Auto) [place] # (Auto) Eos # (Auto) Baso # (Auto) PT INR APTT Sodium 138 Potassium 3.7 Chloride 103 Carbon Dioxide 23 BUN 11 Creatinine 0.81 Estimated GFR > 60.0 BUN/Creatinine Ratio 13.6 Glucose 102 H Lactate 0.6 L Calcium 9.1 Total Bilirubin 1.0 AST 31 ALT 27 Alkaline Phosphatase 61 Total Protein 7.6 Albumin 4.5 Globulin 3.1 Albumin/Globulin Ratio 1.5 Lipase 45 Procalcitonin Urine Color Yellow Urine Appearance Clear Urine pH 7.5 Ur Specific [place] <=1.005 Urine Protein Negative Urine Glucose (UA) Negative Urine Ketones Trace H Urine Occult Blood Negative Urine Nitrate Negative Urine Bilirubin Negative Urine Urobilinogen 0.2 Ur Leukocyte Esterase Negative Urine RBC None seen Urine WBC None seen Urine Bacteria None seen Ur Culture Indicated? Cult not indicated Micro UA Comment Microscopic normal 12/09/19 12/09/19 12/09/19 05:09 05:09 05:09 WBC 12.3 H RBC 4.25 Hgb 12.2 Hct 35.4 L MCV 83.2 MCH 28.8 MCHC 34.6 RDW 13.1 Plt Count 185 Neut % (Auto) 82.2 H Lymph % (Auto) 9.8 L [place] % (Auto) 6.6 Eos % (Auto) 0.9 L Baso % (Auto) 0.5 Neut # (Auto) 95827 H Lymph # (Auto) 1200 [place] # (Auto) 800 Eos # (Auto) 100 Baso # (Auto) 100 PT INR APTT Sodium 139 Potassium 3.5 Chloride 107 Carbon Dioxide 23 BUN 12 Creatinine 0.73 Estimated GFR > 60.0 BUN/Creatinine Ratio 16.4 Glucose 99 Lactate Calcium 8.4 Total Bilirubin AST ALT Alkaline Phosphatase Total Protein Albumin Globulin Albumin/Globulin Ratio Lipase Procalcitonin < 0.05 Urine Color Urine Appearance Urine pH Ur Specific [place] Urine Protein Urine Glucose (UA) Urine Ketones Urine Occult Blood Urine Nitrate Urine Bilirubin Urine Urobilinogen Ur Leukocyte Esterase Urine RBC Urine WBC Urine Bacteria Ur Culture Indicated? Micro UA Comment Discharge Plan Discharge Plan Patient Disposition: Home Discharge comment: You're being discharged home. You have cellulitis of your of your right gluteus. Please keep this area clean and dry. You have been prescribed Keflex 500 mg twice daily for 7 days to complete course of treatment. Please follow-up with your primary care provider ROLA wong at your scheduled appointment regarding your hospitalization. You may take alternating Tylenol and ibuprofen as needed for pain and as directed on the bottle. Please be sure to drink plenty of water and take these medications with food. Discharge orders & Medications Prescriptions: New cephalexin [Keflex] 500 mg capsule 500 mg PO BID Qty: 14 RF: 0 Continued omeprazole 20 mg capsule,delayed release(DR/EC) 20 mg PO DAILY Qty: 90 RF: 3 ibuprofen 800 mg tablet 800 mg PO PRN PRN (Reason: pain) RF: 0 Follow up/Referrals: Cata Dooley DO [Primary Care Provider] - 1 Week Hermila Wong PA-C [Non-Staff] - As previously scheduled Diet/Activity/Treatments Diet: Low-fat, Low-sodium and Low-cholesterol Activity: Activity as tolerated Visit Report/Discharge Packet Instructions: DI for Cellulitis -- Adult, Cellulitis, Cephalexin (By mouth) Discharge Data Primary Care Provider: Cata Dooley Attending Provider: Dayana oBnilla Admit Date/Time: 12/08/19 17:56 Quality VTE Deep Vein Thrombosis/Pulmonary Embolism Present on Admission: No
--- NOTE | 2019-12-09 13:07 | PC.NURSE ---
Pt is dressed and ready for discharge home with Friend. D/C instructions have been reviewed, d/c meds, time of last dose, stroke education and follow up with her PCP as already scheduled. Pt denies further questions and was taken out via w/c by [employer] to POV with all belongings.
== END 2019-12-09 13:09 | disposition home or self-care (01) ==
LOC: ED 17:53 → AC 17:56
PROVIDERS: Nurse Practitioner Adult Health; Admitting Provider Internal Medicine; Emergency Provider Emergency Medicine; PCP Family Medicine; Referring Provider Emergency Medicine; Visit Provider Internal Medicine
DX: L03.317 Cellulitis of buttock (principal); K21.9 Gastro-esophageal reflux disease without esophagitis
CPT/HCPCS: 36415; 74177; 76882; 80048; 80053; 81001; 83605; 83690; 84145; 85025; 85610; 85730; 87040; 93005; 96365; 96366; 96375; 99285; G0378; J0295; J1644; J1885; Q9967